=== PATIENT | female | born 1995 | race Hispanic/Latino ===

== ENCOUNTER 2017-06-07 18:08 | Emergency (ER) | payer OTHER ==
[~2017-06-07] VITALS: Ht 165.1 cm; Wt 79.4 kg
[~2017-06-07 18:08] MED LIST: LEXAPRO10 MG PO; PHENTERMINE37.5 MG PO
[2017-06-07 18:57] LABS: PLATELET COUNT 265 K/uL (152-353)
[2017-06-07 20:19] LABS: POTASSIUM 3.9 mmol/L (3.6-5.2)
[2017-06-07 23:02] VITALS: BP 122/79; TEMP 99.1
== END 2017-06-07 23:04 | disposition home or self-care (01) ==
LOC: ED 18:08
DX: N94.89 Other specified conditions associated with female genital organs and menstrual cycle (principal); D72.829 Elevated white blood cell count, unspecified
CPT/HCPCS: 36415; 80053; 81000; 81025; 85027; 99283; Q9963

== ENCOUNTER 2017-11-25 16:32 | Emergency (ER) | payer OTHER ==
[~2017-11-25] VITALS: Ht 165.1 cm; Wt 79.4 kg
[2017-11-25 17:30] VITALS: BP 121/70; TEMP 98.1
== END 2017-11-25 17:30 | disposition home or self-care (01) ==
LOC: ED 16:32
PROC: 0HQGXZZ Repair Left Hand Skin, External Approach (ICD-10-PCS; principal; 2017-11-25)
DX: S61.012A Laceration without foreign body of left thumb without damage to nail, initial encounter (principal); W27.8XXA Contact with other nonpowered hand tool, initial encounter; Y92.89 Other specified places as the place of occurrence of the external cause
CPT/HCPCS: 90471; 90715; 99282

== ENCOUNTER 2018-03-15 15:47 | Emergency (ER) | payer OTHER ==
[~2018-03-15] VITALS: Ht 165.1 cm; Wt 83.9 kg
[2018-03-15 15:50] VITALS: TEMP 97.9
[2018-03-15 17:10] LABS: PLATELET COUNT 213 K/uL (152-353)
[2018-03-15 17:18] LABS: POTASSIUM 3.8 mmol/L (3.6-5.2)
[2018-03-15 18:00] VITALS: BP 114/74
== END 2018-03-15 18:00 | disposition home or self-care (01) ==
LOC: ED 15:47
PROVIDERS: Family Medicine
DX: K21.9 Gastro-esophageal reflux disease without esophagitis (principal); K80.20 Calculus of gallbladder without cholecystitis without obstruction
CPT/HCPCS: 80053; 81000; 85027; 99283

== ENCOUNTER 2018-06-26 08:35 | Emergency (ER) | payer OTHER ==
[~2018-06-26] VITALS: Ht 165.1 cm; Wt 83.9 kg
[2018-06-26 09:43] LABS: PLATELET COUNT 219 K/uL (152-353)
[2018-06-26 10:56] VITALS: BP 108/68; TEMP 97.6
== END 2018-06-26 10:57 | disposition home or self-care (01) ==
LOC: ED 08:35
PROVIDERS: Family Medicine
DX: R53.1 Weakness (principal); O21.0 Mild hyperemesis gravidarum; Z3A.32 32 weeks gestation of pregnancy
CPT/HCPCS: 80053; 81000; 85027; 87502; 99283

== ENCOUNTER 2019-03-10 18:36 | Outpatient (CLI) | payer OTHER | END 2019-03-10 22:06 | disposition home or self-care (01) | LOC: LABW 18:36 | DX: R19.7 Diarrhea, unspecified (principal) | CPT/HCPCS: 82272; 83630; 87015; 87045; 87324; 87328; 87329; 87449; 87899 ==